=== PATIENT | female | born 1980 ===

== ENCOUNTER 2018-08-04 08:50 | Emergency (ER) | payer OTHER ==
[2018-08-04 08:50] VITALS: BMI 21.9
[2018-08-04 09:15] VITALS: O2SAT 100
--- NOTE | 2018-08-04 10:45 | RAD ---
Date of service: 08/04/2018 PROCEDURE: Right Foot Radiographs. HISTORY: right foot pain. trauma to dorsal foot COMPARISON: None. FINDINGS: BONES: No fracture lucency possible nonspecific small cystic change in the posterior talus and/or superimposed distal fibula on lateral view difficult to appreciate on other projections exam focus to the foot rather than the ankle. JOINTS: Normal. SOFT TISSUES: Normal. OTHER FINDINGS: Os trigonum 4th and 5th clinodactyly. Minimal hammertoe orientations. IMPRESSION: No fracture or suspect lytic lesion. Other findings as above.
--- NOTE | 2018-08-04 12:03 | ED PDOC ---
Lower Extremity Pain/Injury Time Seen by Provider: 08/04/18 09:38 Chief Complaint (Nursing): Lower Extremity Problem/Injury Chief Complaint (Provider): Lower Extremity Problem/Injury History Per: Patient History/Exam Limitations: no limitations Onset/Duration Of Symptoms: Hrs Current Symptoms Are (Timing): Still Present Additional Complaint(s): Jazmyne Mason is a 37 year old female and employee of this hospital, with a past medical history of asthma, who is presenting to the ED for evaluation of right foot injury s/p heavy object falling on it just prior to arrival. Patient states that she is unable to put pressure on the foot and is unable to move it. She reports that it is numb and took 800 mg of Motrin for pain with no relief of symptoms. Patient admits that she cant take Morphine or Percocet as it makes her hyper and uncomfortable. She denies any other medical complaints or injuries. PMD: Yoni Melendez I - Ankle/Foot Description Of Injury: Struck With Object Currently Unable To: Bear Weight, Bend Or Move Past Medical History Reviewed: Historical Data, Nursing Documentation, Vital Signs Vital Signs: Last Vital Signs Temp 98.4 F 08/04/18 09:14 Pulse 89 08/04/18 09:14 Resp 17 08/04/18 09:14 BP 112/78 08/04/18 09:14 Pulse Ox 100 08/04/18 09:14 - Medical History PMH: Asthma (HOSPITALIZED 2004) - Surgical History Other surgeries: Laparoscopy, breast reduction - Family History Family History: States: Unknown Family Hx - Social History Current smoker - smoking cessation education provided: No Ex-Smoker (has not smoked in the last 12 months): Yes Alcohol: Social Drugs: Denies - Home Medications Home Medications: Ambulatory Orders Medication Instructions Recorded RX: Albuterol HFA [Ventolin HFA 90 2 puff IN PRN PRN 01/18/14 mcg/actuation (8 g)] DiphenhydrAMINE [Benadryl] 25 mg PO QID PRN #12 cap 12/03/15 Epinephrine [Epipen 2-Stu] 0.3 mg IJ ONCE PRN #2 auto.injct 12/03/15 RX: Prednisone 50 mg PO DAILY #4 tab 12/03/15 Famotidine [Pepcid] 20 mg PO BID #20 tab 09/25/16 Ondansetron ODT [Zofran ODT] 4 mg PO Q8H PRN #20 odt 09/25/16 - Allergies Allergies/Adverse Reactions: Allergies Allergy/AdvReac Type Severity Reaction Status Date / Time aspirin Allergy RASH Verified 09/25/16 15:13 Review of Systems ROS Statement: Except As Marked, All Systems Reviewed And Found Negative Musculoskeletal: Positive for: Foot Pain Neurological: Positive for: Numbness Physical Exam - Reviewed Nursing Documentation Reviewed: Yes Vital Signs Reviewed: Yes - Physical Exam Appears: Positive for: Non-toxic, No Acute Distress Head Exam: Positive for: ATRAUMATIC, NORMAL INSPECTION, NORMOCEPHALIC Skin: Positive for: Normal Color, Warm, DRY Eye Exam: Positive for: EOMI, Normal appearance, PERRL ENT: Positive for: Normal ENT Inspection Neck: Positive for: Normal, Painless ROM, Supple Cardiovascular/Chest: Positive for: Regular Rate, Rhythm. Negative for: Murmur Respiratory: Positive for: Normal Breath Sounds. Negative for: Respiratory Distress Gastrointestinal/Abdominal: Positive for: Normal Exam, Soft. Negative for: Tenderness Back: Positive for: Normal Inspection. Negative for: L CVA Tenderness, R CVA Tenderness Extremity: Positive for: Other (swelling and ecchymosis over dorsal surface of midfoot: 2 linear abrasions without active bleeding. Patient unable to move foot passive or active, limited to pain. Claims she cant feel sensation to light or heavy touch to toes and cant wiggle toes no visible injury to toes or ankles ) Neurologic/Psych: Positive for: Alert, Oriented. Negative for: Motor/Sensory Deficits - ECG O2 Sat by Pulse Oximetry: 100 (RA) Pulse Ox Interpretation: Normal Medical Decision Making Medical Decision Making: Time: 9:50 A/P: : x-rays --Tylenol for pain --Podiatry consult Scribe Attestation: Documented byNaheed acting as a scribe for Nelly Tabor MD. Provider Scribe Attestation: All medical record entries made by the Scribe were at my direction and personally dictated by me. I have reviewed the chart and agree that the record accurately reflects my personal performance of the history, physical exam, medical decision making, and the department course for this patient. I have also personally directed, reviewed, and agree with the discharge instructions and disposition. Disposition - Clinical Impression Clinical Impression: Foot pain, right, Lower extremity injury - Disposition Disposition Time: 14:20 Condition: IMPROVED Additional Instructions: Keep foot elevated, ice for 20 minutes at a time, several times a day, elevated the foot when not ambulating, and use ibuprofen for pain. Use crutches as needed based on pain. Follow up with primary medical doctor in one week. Instructions: Muscle and Bone Pain (DC), Going Up and Down Curbs or Stairs With a Walker or Crutches Forms: [employer] (Maltese), [facility] ED School/Work Excuse Print Language: MALAY
--- NOTE | 2018-08-04 12:27 | CP.PCM.CON ---
History of Present Illness - History of Present Illness History of Present Illness: Podiatry consult note for Dr. 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 States she dropped a pot on the top of her foot on Thursday and has had pain since. States she has been walking and driving since and has not rested her foot much other than when she goes to sleep. States she is in 9/10 pain and that she has noticed swelling and bruising on the top of her foot as well as traveling down to the bottom. States her first three toes feel numb and she feels tingling in her foot that radiates. States she can only wiggle her toes a little bit secondary to pain. States the only thing that helps her is ibuprofen and motrin but she is unable to take motrin much as it upsets her stomach. States there was nothing in the pot when she dropped it on her foot. Denies N/V/F/C/SOB/CP and has no other pedal complaints. PMHx: asthma PSHx: Laparascopy, breast reduction All: aspirin Past Patient History - Past Medical History & Family History Past Medical History?: Yes - Past Social History Alcohol: Social Drugs: Denies - PULMONARY Hx Asthma: Yes (HOSPITALIZED 2004) - GENITOURINARY/GYNECOLOGICAL Other/Comment: HX OVARIAN CYSTS - PSYCHIATRIC Hx Substance Use: No - SURGICAL HISTORY Hx Surgeries: Yes Hx Dilation and Curettage: Yes Other/Comment: SEVEN LAPAROSCOPIES ABDOMINOPLASTY BREAST REDUCTION LB - ANESTHESIA Hx Anesthesia: Yes Hx Anesthesia Reactions: No Hx Malignant Hyperthermia: No Meds Allergies/Adverse Reactions: Allergies Allergy/AdvReac Type Severity Reaction Status Date / Time aspirin Allergy RASH Verified 09/25/16 15:13 Physical Exam - Constitutional Appears: Well, Non-toxic, No Acute Distress - Head Exam Head Exam: ATRAUMATIC, NORMOCEPHALIC - Extremities Exam Additional comments: RLE focused Vasc: DP and PT pulses palpable; cap refill <3 seconds to all digits; temp gradient warm to cool from proximal to distal; edema noted dorsally at the midfoot Derm: two small linear abrasions noted at the dorsum of the right foot - healed; mild ecchymosis present at the site of impact as well as very mild at the medial arch; no open lesions or wounds present; no streaking or erythema present Ortho: severe pain on palpation at the site of impact on the dorsum of the right midfoot; muscle testing unattainable secondary to guarding and pain; pain with motion of toes and upon palpation at the ankle Neuro: gross and protective sensation intact - Neurological Exam Neurological exam: Alert, Oriented x3 - Psychiatric Exam Psychiatric exam: Normal Affect, Normal Mood Results - Vital Signs Recent Vital Signs: Last Vital Signs Temp 98.4 F 08/04/18 09:14 Pulse 89 08/04/18 09:14 Resp 17 08/04/18 09:14 BP 112/78 08/04/18 09:14 Pulse Ox 100 08/04/18 12:05 Assessment & Plan - Assessment and Plan (Free Text) Assessment: 37F with pmhx of asthma evaluated in ED for right foot bone contusion Plan: Patient seen and evaluated Discussed in detail with Dr. Orellana Afebrile X-rays taken - no acute fracture or bone pathology, mild soft tissue swelling dorsally Patient refused CT imaging of right lower extremity Educated patient on RICE protocol Advised to take antiinflammatories for pain and inflammation Compression as tolerated Dispensed surgical shoe and instructed on assistance in ambulation with crutches Follow up with Dr. Orellana in his office if pain persists Return to ED if pain gets worse, or any signs of infection or further redness/swelling presents Thank you for the consult - Date & Time Date: 08/04/18 Time: 15:18
--- NOTE | 2018-08-04 12:56 | RAD ---
Date of service: 08/04/2018 PROCEDURE: Right Foot Radiographs. HISTORY: lateral oblique, please COMPARISON: None. FINDINGS: BONES: Normal. No fracture. JOINTS: Normal. SOFT TISSUES: Normal. OTHER FINDINGS: None. IMPRESSION: Normal right foot radiographs.
--- NOTE | 2018-08-04 15:29 | CT ---
Date of service: 08/04/2018 PROCEDURE: HISTORY: right foot contusion COMPARISON: TECHNIQUE: FINDINGS: No fracture dislocation is observed. The ankle mortise and subtalar joint are intact. There is no evidence of tarsal bone fracture. No gross soft abnormality is observed. IMPRESSION: No fracture.
[2018-08-04 15:39] VITALS: BP 129/86; PULSE 90; RESP 18; TEMP 98.2
== END 2018-08-04 15:25 | disposition home or self-care (01) ==
LOC: H.ER 08:50
DX: S90.31XA Contusion of right foot, initial encounter (principal); W22.8XXA Striking against or struck by other objects, initial encounter; Y92.89 Other specified places as the place of occurrence of the external cause